=== PATIENT | female | born 1985 | race Caucasian/White ===

== ENCOUNTER 2018-01-15 14:57 | Emergency (ER) | payer OTHER ==
[~2018-01-15] VITALS: Ht 162.6 cm; Wt 90.9 kg
[2018-01-15 17:47] LABS: HEMATOCRIT 43.8 % (36.0-46.0); HEMOGLOBIN 15.7 G/DL (11.9-15.5); MCH 32.6 PG (29.0-34.0); MCHC 35.8 G/DL (30.0-36.0); MCV 91.1 FL (83-99); PLATELET COUNT 300 K/uL (156-360); RBC DIS.WIDTH-CV 11.8 % (11.8-14.6); RBC DIS.WIDTH-SD 38.9 % (39-53); RED BLOOD COUNT 4.81 M/uL (3.80-5.20); WHITE BLOOD COUNT 9.5 K/uL (4.1-10.2)
[2018-01-15 17:59] LABS: ALBUMIN 4.3 g/dL (3.2-4.8)
[2018-01-15 18:00] LABS: CHLORIDE 104 mEq/L (99-109); SODIUM 138 mEq/L (136-147)
[2018-01-15 18:02] LABS: GLUCOSE 95 mg/dL (70-99); TOTAL PROTEIN 7.7 g/dL (6.4-8.3)
[2018-01-15 18:04] LABS: TOTAL BILIRUBIN 1.6 mg/dL (0.0-1.0)
[2018-01-15 18:05] LABS: ALKALINE PHOSPHATASE 100 IU/L (3-129)
[2018-01-15 18:06] LABS: CREATININE 0.8 mg/dL (0.6-1.3)
[2018-01-15 18:07] LABS: AST (GOT) 22 IU/L (2-34); UREA NITROGEN (BUN) 13 mg/dL (9-23)
[2018-01-15 18:08] LABS: ALT (GPT) 30 IU/L (3-49)
[2018-01-15 18:12] LABS: GFR ESTIMATE (CALCULATED) > 59 mL/min/
[2018-01-15 18:14] LABS: QUANTITATIVE HCG < 4.0 MIU/ML
[2018-01-15 19:27] LABS: THYROTROPIN (TSH) 1.5 MIU/L (0.4-5.5)
[2018-01-15] MEDS ORDERED: CELEXA10 MG PO (22:14)
[2018-01-15 22:22] VITALS: BP 154/98
== END 2018-01-15 22:23 | disposition home or self-care (01) ==
LOC: EME 14:57 → EDBD 14:57 → EME 22:23
PROVIDERS: Physician Assistant
DX: R20.2 Paresthesia of skin (principal); M54.2 Cervicalgia; Z86.39 Personal history of other endocrine, nutritional and metabolic disease
CPT/HCPCS: 70450; 70551; 80053; 82607; 84443; 84702; 85027; 93005; 99281; 99284; J2060